=== PATIENT | male | born 1955 | race Caucasian/White ===

== ENCOUNTER 2016-08-05 09:52 | Observation (INO) | payer BC ==
[~2016-08-05] VITALS: Ht 177.8 cm; Wt 105.5 kg
[~2016-08-05 09:52] MED LIST: ATIVAN0.5 MG PO; Advair 250/50 Diskus IH; CIPRO500 MG PO; CITRATE OF MAG296 ML PO; CLOPIDOGREL75 MG PO; CRESTOR40 MG PO; CYMBALTA30 MG PO; Cozaar PO; EXFORGE 10/11 TABLET PO; FLAGYL500 MG PO; FLEXERIL5 MG PO; Habitrol,Nicoderm CQ TD; Heparin IV; KlonoPIN PO; MIRALAX255 GM PO; MOTRIN50 MG PO; MOTRIN800 MG; MOTRIN800 MG PO; Miralax, Glycolax PO; Motrin PO; Norvasc PO; PERCOCET 5/31 TABLET PO; Percocet 5/325,Endoc PO; Protonix PO; SPIRIVA1 INHALATI IH; TRAMADOL HCL50 MG PO; TRAZODONE HCL50 MG PO; TYLENOL WITH C1 EACH PO; ULTRAM50 MG; ULTRAM50 MG PO; VICODIN 5-5001 EACH PO; Zofran IV
[2016-08-05 10:29] LABS: BASOPHIL COUNT 0.1 K/uL (0-0.1); EOSINOPHIL COUNT 0.2 K/uL (0-0.3); HEMATOCRIT 47.9 % (38.0-50.0); IMMATURE GRANULOCYTE (%) 0.3 % (0.0-0.7); IMMATURE GRANULOCYTE COUNT 0.2 K/uL; LYMPHOCYTE COUNT 1.6 K/uL (1.0-2.8); MCH 31.6 PG (29.0-34.0); MCHC 34.9 G/DL (30.0-36.0); MCV 90.7 FL (86-99); MEAN PLAT.VOLUME 9.7 uM^3 (9.0-12.4); MONOCYTE (%) 7.5 % (3-12); MONOCYTE COUNT 0.5 K/uL (0-0.8); NEUTROPHIL (%) 59.5 % (45-76); NEUTROPHIL COUNT 3.6 K/uL (1.8-6.4); PLATELET COUNT 170 K/uL (156-360); RBC DIS.WIDTH-CV 13.5 % (11.8-14.6); RBC DIS.WIDTH-SD 44.5 % (39-53); RED BLOOD COUNT 5.28 M/uL (4.00-5.50)
[2016-08-05 10:37] LABS: CHLORIDE 112 mEq/L (99-109); POTASSIUM 4.1 mEq/L (3.7-5.4); SODIUM 143 mEq/L (136-147)
[2016-08-05 10:39] LABS: D-DIMER ELISA 1.42 mg/L FEU (< 0.57); GLUCOSE 93 mg/dL (70-99)
[2016-08-05 10:40] LABS: ANION GAP 10 MEQ/L (2-14)
[2016-08-05 10:41] LABS: TOTAL BILIRUBIN 0.7 mg/dL (0.0-1.0)
[2016-08-05 10:42] LABS: ALKALINE PHOSPHATASE 67 IU/L (3-129)
[2016-08-05 10:43] LABS: GFR ESTIMATE (CALCULATED) > 59 mL/min/
[2016-08-05 10:44] LABS: UREA NITROGEN (BUN) 13 mg/dL (9-23)
[2016-08-05 10:46] LABS: CREATINE KINASE 42 IU/L (1-294); TOTAL CK 42 IU/L (1-294)
[2016-08-05 10:49] LABS: TROP-I INTERPRETATION NEGATIVE; TROPONIN-I < 0.01 ng/mL (0.0-0.30)
[2016-08-05 10:51] LABS: CK-MB 1.1 ng/mL (0.0-4.9)
[2016-08-05] MEDS ORDERED: EXFORGE 5/321 TABLET PO (15:50)
[2016-08-05 16:59] LABS: TROP-I INTERPRETATION NEGATIVE; TROPONIN-I < 0.01 ng/mL (0.0-0.30)
[2016-08-05 18:45] LABS: Estimated Average Glucose 114 mg/dL (70-123); HEMOGLOBIN A1c (GLYCOHEMOGLOB) 5.6 % HGB (Below 5.7)
[2016-08-05 19:04] VITALS: BP 130/74
[2016-08-05 23:41] VITALS: BP 155/78
[2016-08-06 04:08] VITALS: BP 143/90
[2016-08-06 06:40] LABS: HDL CHOLESTEROL 33 MG/DL (Desirable>=40); LDL CHOLESTEROL 91 mg/dL (Desirable<100); NON-HDL CHOLESTEROL 116 mg/dL (Desirable<160); TOTAL CHOLESTEROL 149 mg/dL (Desirable<200); TRIGLYCERIDES 127 MG/DL (Normal: <150)
[2016-08-06 07:12] VITALS: BP 152/78
[2016-08-06 12:56] VITALS: BP 166/103
[2016-08-06] MEDS ORDERED: VALSARTAN160 MG PO (13:14)
[2016-08-06] MEDS ORDERED: ASPIR-LOW81 MG PO (13:14)
[2016-08-06 13:26] LABS: TROP-I INTERPRETATION NEGATIVE; TROPONIN-I 0.02 ng/mL (0.0-0.30)
== END 2016-08-06 14:11 | disposition home or self-care (01) ==
LOC: EME → EDBD 09:52 → EME 09:52 → EDOF 15:33 → 5WEST 16:43
PROVIDERS: Emergency Medicine; Internal Medicine; Internal Medicine Cardiovascular Disease
DX: R07.89 Other chest pain (principal); R93.1 Abnormal findings on diagnostic imaging of heart and coronary circulation; I45.10 Unspecified right bundle-branch block; I72.4 Aneurysm of artery of lower extremity; I71.2 Thoracic aortic aneurysm, without rupture; I10 Essential (primary) hypertension; Z86.718 Personal history of other venous thrombosis and embolism; F32.9 Major depressive disorder, single episode, unspecified; I73.9 Peripheral vascular disease, unspecified; Z85.528 Personal history of other malignant neoplasm of kidney; F17.200 Nicotine dependence, unspecified, uncomplicated; Z79.82 Long term (current) use of aspirin; Z79.899 Other long term (current) drug therapy
CPT/HCPCS: 71010; 71275; 80053; 80061; 82550; 82553; 83036; 84484; 85025; 85379; 93005; 99202; 99281; 99285; G0378; J1650

== ENCOUNTER 2017-01-03 06:52 | Day surgery (SDC) | payer BC ==
[~2017-01-03] VITALS: Ht 177.8 cm; Wt 107.5 kg
[~2017-01-03 06:52] MED LIST changes: +ASPIR-LOW81 MG PO; +EXFORGE 5/321 TABLET PO; +VALSARTAN160 MG PO; +VALSARTAN320 MG PO
== END 2017-01-03 12:18 | disposition home or self-care (01) ==
LOC: CATH 06:52
PROC: 047N34Z Dilation of Left Popliteal Artery with Drug-eluting Intraluminal Device, Percutaneous Approach (ICD-10-PCS; principal; 2017-01-03)
DX: I72.4 Aneurysm of artery of lower extremity (principal); I71.2 Thoracic aortic aneurysm, without rupture; I10 Essential (primary) hypertension; Z85.528 Personal history of other malignant neoplasm of kidney; Z86.718 Personal history of other venous thrombosis and embolism; F17.210 Nicotine dependence, cigarettes, uncomplicated
CPT/HCPCS: C1725; C1769; C1887; C1894; J1644; J2250; J3010; S0020

== ENCOUNTER 2017-05-19 13:56 | Inpatient (IN) | payer BC ==
[~2017-05-19] VITALS: Ht 175.3 cm; Wt 107.2 kg
[2017-05-19 15:27] LABS: HEMATOCRIT 48.5 % (38.0-50.0); MCH 31.8 PG (29.0-34.0); MCHC 34.2 G/DL (30.0-36.0); MCV 92.9 FL (86-99); MEAN PLAT.VOLUME 9.4 uM^3 (9.0-12.4); PLATELET COUNT 205 K/uL (156-360); RBC DIS.WIDTH-CV 13.4 % (11.8-14.6); RBC DIS.WIDTH-SD 45.7 % (39-53); RED BLOOD COUNT 5.22 M/uL (4.00-5.50); WHITE BLOOD COUNT 8.6 K/uL (4.1-10.2)
[2017-05-19 15:36] LABS: CHLORIDE 108 mEq/L (99-109); POTASSIUM 4.3 mEq/L (3.7-5.4); SODIUM 143 mEq/L (136-147)
[2017-05-19 15:38] LABS: GLUCOSE 84 mg/dL (70-99)
[2017-05-19 15:39] LABS: ANION GAP 10 MEQ/L (2-14)
[2017-05-19 15:42] LABS: GFR ESTIMATE (CALCULATED) > 59 mL/min/
[2017-05-19 15:43] LABS: UREA NITROGEN (BUN) 13 mg/dL (9-23)
[2017-05-19 15:47] LABS: TROP-I INTERPRETATION NEGATIVE; TROPONIN-I < 0.01 ng/mL (0.0-0.30)
[2017-05-19 16:37] LABS: LIPASE 25 U/L (1.0-51.0)
[2017-05-19] MEDS ORDERED: AMBIEN10 MG PO (19:20)
[2017-05-19] MEDS ORDERED: AMLODIPINE-VAL1 EAC3 PO (19:21)
[2017-05-19 21:24] VITALS: BP 141/86
[2017-05-19 21:59] LABS: HDL CHOLESTEROL 33 MG/DL (Desirable>=40); LDL CHOLESTEROL 88 mg/dL (Desirable<100); NON-HDL CHOLESTEROL 120 mg/dL (Desirable<160); TOTAL CHOLESTEROL 153 mg/dL (Desirable<200); TRIGLYCERIDES 159 MG/DL (Normal: <150)
[2017-05-20 04:20] VITALS: BP 138/87
[2017-05-20 05:44] LABS: TROP-I INTERPRETATION NEGATIVE; TROPONIN-I < 0.01 ng/mL (0.0-0.30)
[2017-05-20 09:35] VITALS: BP 137/78
[2017-05-20 10:42] LABS: TROP-I INTERPRETATION NEGATIVE; TROPONIN-I < 0.01 ng/mL (0.0-0.30)
[2017-05-20 11:21] VITALS: BP 146/85
[2017-05-20] MEDS ORDERED: ELIQUIS2.5 MG PO ×3 (15:49→16:30)
== END 2017-05-20 16:11 | disposition home or self-care (01) | DRG 300 ==
LOC: EME 13:56 → EDOF 20:10 → ENRESERV 20:11 → 5WEST 21:19
PROVIDERS: Hospitalist
DX: I82.441 Acute embolism and thrombosis of right tibial vein (principal); F33.9 Major depressive disorder, recurrent, unspecified; J98.11 Atelectasis; J43.9 Emphysema, unspecified; I71.2 Thoracic aortic aneurysm, without rupture; I10 Essential (primary) hypertension; Z96.653 Presence of artificial knee joint, bilateral; F41.0 Panic disorder [episodic paroxysmal anxiety]; I73.9 Peripheral vascular disease, unspecified; F17.210 Nicotine dependence, cigarettes, uncomplicated; G47.00 Insomnia, unspecified; I87.8 Other specified disorders of veins; I72.4 Aneurysm of artery of lower extremity; Z98.62 Peripheral vascular angioplasty status; Z86.718 Personal history of other venous thrombosis and embolism; Z85.528 Personal history of other malignant neoplasm of kidney; Z80.3 Family history of malignant neoplasm of breast; Z82.49 Family history of ischemic heart disease and other diseases of the circulatory system; Z79.82 Long term (current) use of aspirin; Z79.01 Long term (current) use of anticoagulants
CPT/HCPCS: 71020; 71275; 80048; 80061; 80076; 83690; 84443; 84484; 85027; 85610; 85730; 93005; 93971; 99202; 99281; 99285; G0378; J1650